=== PATIENT | female | born 1960 | race Caucasian/White ===

== ENCOUNTER 2021-08-29 09:26 | Emergency (ER) | payer OTHER ==
[~2021-08-29] VITALS: Ht 170.2 cm; Wt 65.4 kg
[2021-08-29] MEDS ORDERED: PANTOPRAZOLE IV PUSH 40 MG VIAL. IVP ONE (10:00)
[2021-08-29] MEDS ORDERED: IV NORMAL SALINE 1000ML BAG 1,000 ML IV SCH (10:00)
[2021-08-29] MEDS ORDERED: IOHEXOL 300 MG/ML 100ML VIAL. IV ONE (10:00)
[2021-08-29] MEDS ORDERED: ONDANSETRON PF 4 MG/2 ML VIAL. IVP ONE (10:00)
[2021-08-29 10:20] LABS: BASO # 0.1 x10^3/uL (0.0-0.2); BASO % 1 % (0-3); EOS # 0.2 x10^3/uL (0.0-0.7); EOS % 4 % (0-3); HEMATOCRIT 35.6 % (36.0-47.0); HEMOGLOBIN 11.5 g/dL (12.0-15.5); LYMPH # 1.5 x10^3/uL (1.0-4.8); LYMPH % 30 % (24-48); MEAN CORPUSCULAR HEMOGLOBIN 25 pg (25-35); MEAN CORPUSCULAR HGB CONC 32 g/dL (31-37); MEAN CORPUSCULAR VOLUME 76 fL (79-100); MONO # 0.4 x10^3/uL (0.0-1.1); MONO % 8 % (0-9); NEUT # 2.8 x10^3/uL (1.8-7.7); NEUT % 57 % (31-73); PLATELET COUNT 337 x10^3/uL (140-400); RED BLOOD COUNT 4.66 x10^6/uL (3.50-5.40); RED CELL DISTRIBUTION WIDTH 15.9 % (11.5-14.5); WHITE BLOOD COUNT 4.9 x10^3/uL (4.0-11.0)
[2021-08-29 10:34] LABS: BACTERIA,URINE 0 /HPF (0-FEW); RBC,URINE 0 /HPF (0-2); WBC,URINE RARE /HPF (0-4)
[2021-08-29 10:36] LABS: CALCIUM 8.7 mg/dL (8.5-10.1); CREATININE 0.7 mg/dL (0.6-1.0); GFR 85.9; POTASSIUM 3.9 mmol/L (3.5-5.1)
[2021-08-29 10:41] LABS: ALBUMIN 3.5 g/dL (3.4-5.0); ALBUMIN/GLOBULIN RATIO 1.3 (1.0-1.7); TOTAL BILIRUBIN 0.1 mg/dL (0.2-1.0); TOTAL PROTEIN 6.3 g/dL (6.4-8.2)
--- NOTE | 2021-08-29 11:17 | RAD ---
EXAMINATION: CT abdomen and pelvis with IV contrast. INDICATION:60 years, Female, abdomen pain. TECHNIQUE: Axial CT images of the abdomen and pelvis were obtained. Coronal and sagittal reformatted performed. COMPARISON: None. Exposure: One or more of the following individualized dose reduction techniques were utilized for thi s examination: 1. Automated exposure control 2. Adjustment of the mA and/or kV according to patient size 3. Use of iterative reconstruction technique. FINDINGS: LOWER CHEST: Dependent subsegmental atelectasis in bibasilar lungs. ABDOMEN/PELVIS: Liver, gallbladder, biliary ducts, spleen, pancreas, adrenal glands and kidneys are unremarkable. No bowel dilation. Normal appendix. Mild aortoiliac atherosclerotic calcifications without narrowing or dilation. Mesenteric arteries and portal veins are patent. No pneumoperitoneum or ascites. No lymphad enopathy in the abdomen or pelvis by size criteria. Unremarkable urinary bladder and uterus. MUSCULOSKELETAL STRUCTURES: No acute osseous process. Degenerative changes at L5-S1. Small fat-containing umbilical hernia. IMPRESSION: No acute intra-abdominal findings. Electronically signed by: Camille Saavedra MD (08/29/2021 11:14 AM) [facility]
[2021-08-29 11:30] VITALS: BP 117/72
--- NOTE | 2021-08-29 12:21 | PHYS DOC ---
Past Medical History Past Surgical History: No Surgical History Smoking Status: Never Smoker Alcohol Use: None General Adult EDM: Chief Complaint: WEAKNESS/GENERALIZED HPI: HPI: Patient is a 60 year old female with history of gastritis who presents with upper GI pain, inability to consume food for the last 3 days, nausea without vomiting, and weakness. Patient states that she ran out of her Protonix prescription but had it filled several days ago. She has been treated for H. pylori many years ago. She states that she has not used her Zofran in the last several days since it is not the dissolving tablets. Otherwise she feels fine. She states that she has upper epigastric abdominal pain. It feels like a little bit of pressure, not burning. She is ambulatory. Afebrile. Vital signs stable. Review of Systems: Review of Systems: Constitutional: Denies fever or chills. [] Eyes: Denies change in visual acuity. [] HENT: Denies nasal congestion or sore throat. [] Respiratory: Denies cough or shortness of breath. [] Cardiovascular: Denies chest pain or edema. [] GI: Positive epigastric abdominal pain, positive nausea, denies vomiting, bloody stools or diarrhea. [] : Denies dysuria. [] Musculoskeletal: Denies back pain or joint pain. [] Integument: Denies rash. [] Neurologic: Denies headache, focal weakness or sensory changes. [] Endocrine: Denies polyuria or polydipsia. [] Lymphatic: Denies swollen glands. [] Psychiatric: Denies depression or anxiety. [] Heart Score: C/O Chest Pain: No Risk Factors: Risk Factors: DM, Current or recent (<one month) smoker, HTN, HLP, family history of CAD, obesity. Risk Scores: Score 0 - 3: 2.5% MACE over next 6 weeks - Discharge Home Score 4 - 6: 20.3% MACE over next 6 weeks - Admit for Clinical Observation Score 7 - 10: 72.7% MACE over next 6 weeks - Early Invasive Strategies Current Medications: Current Medications Medications (Trade) Dose Ordered Sig/Jas Start Time Stop Time Status Last Admin Dose Admin Iohexol (Omnipaque 300 Mg/ml) 75 ml 1X ONCE 08/29/21 10:00 08/29/21 10:01 DC 08/29/21 10:00 75 ML Ondansetron HCl (Zofran) 4 mg 1X ONCE 08/29/21 10:00 08/29/21 10:01 DC 08/29/21 10:16 4 MG Pantoprazole Sodium (PROTONIX VIAL for IV PUSH) 40 mg 1X ONCE 08/29/21 10:00 08/29/21 10:01 DC 08/29/21 10:16 40 MG Sodium Chloride 1,000 ml @ 1,000 mls/hr Q1H 08/29/21 10:00 08/29/21 10:59 DC 08/29/21 10:16 1,000 MLS/HR Allergies: Allergies: Allergies Coded Allergies Type Severity Reaction Last Updated Verified alprazolam Allergy Unknown 08/29/21 Yes Physical Exam: PE: Constitutional: Well developed, well nourished, no acute distress, non-toxic appearance. [] HENT: Normocephalic, atraumatic, bilateral external ears normal, oropharynx moist, no oral exudates, nose normal. [] Eyes: PERRLA, EOMI, conjunctiva normal, no discharge. [] Neck: Normal range of motion, no tenderness, supple, no stridor. [] Cardiovascular:Heart rate regular rhythm, no murmur [] Lungs & Thorax: Bilateral breath sounds clear to auscultation [] Abdomen: Bowel sounds normal, soft, minimal epigastric tenderness, no masses, no pulsatile masses. [] Skin: Warm, dry, no erythema, no rash. [] Back: No tenderness, no CVA tenderness. [] Extremities: No tenderness, no cyanosis, no clubbing, ROM intact, no edema. [] Neurologic: Alert and oriented X 3, normal motor function, normal sensory function, no focal deficits noted. [] Psychologic: Affect normal, judgement normal, mood normal. [] Current Patient Data: Labs: Laboratory Tests Test 08/29/21 10:00 08/29/21 10:07 Urine Collection Type Unknown Urine Color (Auto) Light yellow Urine Turbidity Clear Urine pH (Auto) 5.5 (<5.0-8.0) Urine Specific [place] 1.019 (1.000-1.030) Urine Protein (Auto) Negative mg/dL (Negative) Urine Glucose (Auto)(UA) Negative mg/dL (Negative) Urine Ketones (Auto) Negative mg/dL (Negative) Urine Blood (Auto) Negative (Negative) Urine Nitrite Negative (Negative) Urine Bilirubin (Auto) Negative (Negative) Urine Urobilinogen (Auto) Normal mg/dL (Normal) Urine Leukocyte Esterase (Auto) Negative (Negative) Urine RBC 0 /HPF (0-2) Urine WBC Rare /HPF (0-4) Urine Squamous Epithelial Cells Occ /LPF Urine Bacteria 0 /HPF (0-FEW) Urine Mucus Slight /LPF White Blood Count 4.9 x10^3/uL (4.0-11.0) Red Blood Count 4.66 x10^6/uL (3.50-5.40) Hemoglobin 11.5 g/dL (12.0-15.5) L Hematocrit 35.6 % (36.0-47.0) L Mean Corpuscular Volume 76 fL (79-100) L Mean Corpuscular Hemoglobin 25 pg (25-35) Mean Corpuscular Hemoglobin Concent 32 g/dL (31-37) Red Cell Distribution Width 15.9 % (11.5-14.5) H Platelet Count 337 x10^3/uL (140-400) Neutrophils (%) (Auto) 57 % (31-73) Lymphocytes (%) (Auto) 30 % (24-48) Monocytes (%) (Auto) 8 % (0-9) Eosinophils (%) (Auto) 4 % (0-3) H Basophils (%) (Auto) 1 % (0-3) Neutrophils # (Auto) 2.8 x10^3/uL (1.8-7.7) Lymphocytes # (Auto) 1.5 x10^3/uL (1.0-4.8) Monocytes # (Auto) 0.4 x10^3/uL (0.0-1.1) Eosinophils # (Auto) 0.2 x10^3/uL (0.0-0.7) Basophils # (Auto) 0.1 x10^3/uL (0.0-0.2) Sodium Level 143 mmol/L (136-145) Potassium Level 3.9 mmol/L (3.5-5.1) Chloride Level 108 mmol/L (98-107) H Carbon Dioxide Level 24 mmol/L (21-32) Anion Gap 11 (6-14) Blood Urea Nitrogen 7 mg/dL (7-20) Creatinine 0.7 mg/dL (0.6-1.0) Estimated GFR (Cockcroft-Gault) 85.9 BUN/Creatinine Ratio 10 (6-20) Glucose Level 94 mg/dL (70-99) Calcium Level 8.7 mg/dL (8.5-10.1) Total Bilirubin 0.1 mg/dL (0.2-1.0) L Aspartate Amino Transferase (AST) 22 U/L (15-37) Alanine Aminotransferase (ALT) 24 U/L (14-59) Alkaline Phosphatase 70 U/L (46-116) Troponin I High Sensitivity 5 ng/L (4-50) Total Protein 6.3 g/dL (6.4-8.2) L Albumin 3.5 g/dL (3.4-5.0) Albumin/Globulin Ratio 1.3 (1.0-1.7) Lipase 71 U/L (73-393) L Laboratory Tests 08/29/21 10:07 Laboratory Tests 08/29/21 10:07 Vital Signs: Vital Signs Date Time Temp Pulse Resp B/P (MAP) Pulse Ox O2 Delivery O2 Flow Rate FiO2 08/29/21 11:30 72 16 117/72 (87) 94 08/29/21 09:30 98.6 Room Air 98.6 EKG: EKG: Normal sinus rhythm [] Radiology/Procedures: Radiology/Procedures: CT of the abdomen without any acute process [] Impression: Gastritis Course & Med Decision Making: Course & Med Decision Making Pertinent Labs and Imaging studies reviewed. (See chart for details) Seen and evaluated by myself. 60-year-old female with history of gastritis, has not been taking her Protonix, several days of nausea. No signs of dehydration or infection on labs. Patient given 1 L fluid bolus. Labs nonconcerning, CT scan without any acute process. EKG within normal limits. Discussed findings with patient. No acute process at this moment. Likely diagnosis of gastritis. Patient states she has a bottle of Protonix at home. She states that she thinks she would be better with the oral dissolving tablet of Zofran. She will have a follow-up this week with her primary care physician as well. Clinically, she is stable, nontoxic-appearing. Vital signs stable. Patient agrees with discharge. Will follow up with primary care physician as well for testing of H. pylori. Patient hemodynamically stable at the time of discharge. All questions answered. Dragon Disclaimer: Dragon Disclaimer: This electronic medical record was generated, in whole or in part, using a voice recognition dictation system. Departure Departure Impression: Primary Impression: Gastritis Additional Impression: Nausea Disposition: 01 HOME / SELF CARE / HOMELESS Condition: GOOD Patient Instructions: Nausea and Vomiting, [id number] Additional Instructions: Follow-up with your primary care physician this week You may use oral dissolving tablets of Zofran to control nausea Continue to drink fluids. If you are feeling much worse or he having new or developing symptoms, you may return to the emergency department for reevaluation. Scripts Ondansetron (ONDANSETRON ODT) 4 Mg Tab.rapdis 1 TAB PO PRN Q6-8HRS, #16 TAB Prov: ART CHUA MD 08/29/21 ART CHUA MD August 29, 2021 12:21
[2021-08-29] MEDS ORDERED: ONDA4TAB12 PO (12:22)
--- NOTE | 2021-08-30 05:59 | EKG ---
[facility] [address] [place] [address] Test Date: 2021-08-29 Test Time: 10:16:48 Pat Name: LE WALSH Department: Room: Gender: F [employer]: : 1960 Requested By: ART Russo Number: [id number] Reading MD: Measurements Intervals [place] Rate: 66 P: 61 [place]: 138 QRS: 55 QRSD: 84 T: 39 QT: 394 QTc: 415 Interpretive Statements SINUS RHYTHM NORMAL ECG RI6.01 No previous ECG available for comparison
== END 2021-08-29 12:11 | disposition home or self-care (01) ==
LOC: ER 09:26
DX: K29.70 Gastritis, unspecified, without bleeding (principal); R11.0 Nausea; Z88.8 Allergy status to other drugs, medicaments and biological substances
CPT/HCPCS: 36415; 74177; 80053; 81001; 83690; 84484; 85025; 93005; 96361; 96374; 96375; 99285; C9113; J2405; J7030; Q9967